=== PATIENT | male | born 1960 | race Caucasian/White ===

== ENCOUNTER 2020-11-04 16:43 | Emergency (ER) | payer BC, OTHER ==
[2020-11-04 16:53] VITALS: BP 130/91; PULSE 111; TEMP 98.7; BMI 23.6
[2020-11-04] MEDS ORDERED: LIDOCAINE 5% TOPICAL PATCH TP ONE (17:55)
[2020-11-04] MEDS ORDERED: LIDOCAINE 5% TOPICAL PATCH ONE (17:59)
== END 2020-11-04 18:04 | disposition home or self-care (01) ==
LOC: JERFT 16:43
DX: B02.9 Zoster without complications (principal)
CPT/HCPCS: 99283-25